=== PATIENT | male | born 1995 | race Asian ===

== ENCOUNTER 2018-02-27 09:16 | Emergency (ER) | payer OTHER ==
[~2018-02-27] VITALS: Ht 180.3 cm; Wt 90.9 kg
[~2018-02-27 09:16] MED LIST: NO HOME MEDICATIONS; NORCO 325 MG-51 TAB PO
[2018-02-27 09:17] VITALS: TEMP 98.4
[2018-02-27 10:05] VITALS: BP 118/87; PULSE 84
== END 2018-02-27 10:15 | disposition home or self-care (01) ==
LOC: COL.ER 09:16
DX: S43.004A Unspecified dislocation of right shoulder joint, initial encounter (principal); X58.XXXA Exposure to other specified factors, initial encounter